=== PATIENT | female | born 1985 | race Caucasian/White ===

== ENCOUNTER → 2021-10-02 15:48 | Outpatient (BNVA) | payer SELFPAY | PROVIDERS: Family Provider Family Medicine; Visit Provider Nurse Practitioner Women's Health | DX: Z01.419 Encounter for gynecological examination (general) (routine) without abnormal findings (principal); N39.3 Stress incontinence (female) (male); N81.10 Cystocele, unspecified; N81.6 Rectocele; N90.89 Other specified noninflammatory disorders of vulva and perineum | CPT/HCPCS: 87624 ==

== ENCOUNTER → 2022-10-05 09:31 | Outpatient (BNVA) | payer SELFPAY | PROVIDERS: Family Provider Family Medicine; Visit Provider Nurse Practitioner Women's Health | DX: Z01.419 Encounter for gynecological examination (general) (routine) without abnormal findings (principal); Z86.32 Personal history of gestational diabetes | CPT/HCPCS: 87624 ==

== ENCOUNTER 2023-02-03 22:53 | Emergency (ER) | payer SELFPAY ==
[2023-02-03 22:58] VITALS: BP 137/87; PULSE 66; RESP 18; TEMP 37.2; O2SAT 100; BMI 30.2
--- NOTE | 2023-02-03 23:12 | XRR_ITS ---
PROCEDURE INFORMATION: Exam: XR Abdomen Exam date and time: 02/03/2023 11:58 PM Age: 37 years old Clinical indication: Abdominal pain; Flank; Right; Patient HX: C/O RT sided abd pain; Additional info: Right flank pain TECHNIQUE: Imaging protocol: Radiologic exam of the abdomen. Views: Frontal supine view of the abdomen. 1 View. COMPARISON: No relevant prior studies available. FINDINGS: Gastrointestinal tract: [id number] constipation without bowel dilation to indicate obstruction. Bones/joints: Unremarkable. XR/XR KUB [id number] IMPRESSION: 1. Negative for urinary calculi 2. [id number] constipation without bowel dilation to indicate obstruction.
--- NOTE | 2023-02-03 23:13 | W.ED.ABDPA2 ---
HPI - Abdominal Pain General: Chief Complaint: Abdominal Pain Stated Complaint: abd/back pain Time Seen by Provider: 02/03/23 23:07 Source: patient Mode of arrival: ambulatory Limitations: no limitations History of Present Illness: 37-year-old female states she started having right flank pain on Tuesday. She states she has a history of kidney stones states she is passed 2 small stones in the last 2 days but started having worsening pain today states the pain is sharp in nature rates today 8 out of 10 she had some nausea denies any fevers denies any dysuria. She states this feels the same as her previous kidney stones. Associated Symptoms: Reports nausea; Denies chills, diarrhea, dysuria, fever(s) and vomiting Review of Systems Const: Denies: fever(s) or chills ENMT: Denies: throat pain or dental pain Card: Denies: chest pain Resp: Denies: dyspnea GI: Reports: abdominal pain and nausea; Denies: vomiting or diarrhea : Reports: flank pain; Denies: dysuria Musc: Denies: neck pain or back pain Skin/Breast: Denies: rash Neuro: Denies: headache(s) PFSH ED PFSH: Medical History Anxiety has been treated by [facility] with buspar but not helpful. Has been off medication for since at least 2019. History of gestational diabetes No pertinent past medical history neghx:htn,thyroid,dvt/pe PCP: none Pelvic pain Was suspected to be endometriosis but has not been formally diagnosed. Surgical History No pertinent past surgical history Family History Denies family history of Colon cancer Ovarian cancer Diabetes CAD (coronary artery disease) Clotting disorder Chronic kidney disease (CKD) Breast cancer Family history of premature coronary artery disease Hypertension Uterine cancer Stroke Physical Exam Const: COMMON NORMALS: no acute distress, patient oriented x3 and healthy appearing HENMT: COMMON NORMALS: normocephalic and atraumatic HEAD & SCALP: normocephalic and atraumatic Neck/C-Spine: COMMON NORMALS: full ROM and supple Chest: COMMONS NORMALS: normal inspection of the chest Resp: COMMON NORMALS: normal respiratory effort, No retractions, No use of accessory muscles and clear to auscultation bilaterally AUSCULTATION: clear to auscultation bilaterally Cardio: COMMON NORMALS: regular rate, regular rhythm and No murmurs present (Cardio) RATE: regular rate RHYTHM: regular rhythm GI: COMMON NORMALS: Normal to inspection, nondistended, normoactive bowel sounds present, Soft to palpation, non-tender and no masses PALPATION: Yes Soft to palpation : COMMON NORMALS: Yes no CVA tenderness BLADDER/KIDNEY EXAM: Yes no CVA tenderness Back/Pelvis: COMMON NORMALS: no CVA tenderness Extremity: COMMON NORMALS: normal to inspection and full ROM Neuro: COMMON NORMALS: patient oriented x3, moves all extremities and no focal motor deficits Psych: COMMON NORMALS: mental status grossly normal, Normal thought process present and cooperative THOUGHT PROCESS: Normal thought process present Skin: COMMON NORMALS: no rashes or lesions noted and no wounds GENERAL SKIN EXAM: no rashes or lesions noted Course Vital Signs: Vital signs: Vital Signs Temperature 98.9 F 02/03/23 22:58 Pulse Rate 80 02/04/23 01:23 Respiratory Rate 16 02/04/23 01:23 Blood Pressure 131/93 02/04/23 01:23 Pulse Oximetry 99 02/04/23 01:23 MDM - Abdominal Pain Medical Decision Making Patient presents with abdominal pain she does have hematuria could be a stone her pain is much improved here she states her pain currently is only 1 out of 10 she is also constipated on the x-ray her blood work here is normal on reevaluation I did offer her CT scan but she states she feels improved she would like to try pain meds at home along with a laxative she is no signs of UTI. I did inform her if her pain worsens she is to return as she would probably need a CT at that time to rule out appendicitis on discharge she has no right lower quadrant or right quadrant tenderness. She understands agrees to plan Lab Data 02/03/23 23:15 02/03/23 23:15 Labs/Radiology: Radiology Impressions KUB X-Ray 02/03/23 23:12 IMPRESSION: 1. Negative for urinary calculi 2. [id number]-hu-pclstotf constipation without bowel dilation to indicate obstruction. Laboratory Results WBC 12.5 10^3/uL (4.0-10.0) H 08/10/23 23:15 RBC 4.33 10^6/uL (4.1-5.3) 02/03/23 23:15 Hgb 13.4 g/dL (11.5-15.3) 02/03/23 23:15 Hct 37.6 % (37.0-47.0) 02/03/23 23:15 MCV 86.8 fl (81-99) 02/03/23 23:15 MCH 30.9 pg (28.0-34.0) 02/03/23 23:15 MCHC 35.6 g/dL (30.0-36.0) 02/03/23 23:15 RDW 11.7 % (12.1-15.1) L 02/03/23 23:15 Plt Count 247 10^3/cmm (130-400) 02/03/23 23:15 MPV 11.0 fL (7.4-10.4) H 02/03/23 23:15 Neut % (Auto) 81.0 % 02/03/23 23:15 Lymph % (Auto) 9.8 % 02/03/23 23:15 [place] % (Auto) 7.4 % 02/03/23 23:15 Eos % (Auto) 1.0 % 02/03/23 23:15 Baso % (Auto) 0.3 % 02/03/23 23:15 Neut # (Auto) 10.14 10^3/uL (1.8-7.7) H 02/03/23 23:15 Lymph # (Auto) 1.2 10^3/uL (0.8-4.8) 02/03/23 23:15 [place] # (Auto) 0.9 10^3/uL (0.2-0.9) 02/03/23 23:15 Eos # (Auto) 0.1 10^3/uL (0.0-0.8) 02/03/23 23:15 Baso # (Auto) 0.0 10^3/uL (0.0-0.1) 02/03/23 23:15 Nucleated RBC % (auto) 0 % 02/03/23 23:15 Nucleated RBCs # 0.0 /100WBC 02/03/23 23:15 Sodium 139 mmol/L (136-145) 02/03/23 23:15 Potassium 4.2 mmol/L (3.5-5.1) 02/03/23 23:15 Chloride 101 mmol/L (98-107) 02/03/23 23:15 Carbon Dioxide 25 mmol/L (22-29) 02/03/23 23:15 Anion Gap 17.2 (5-19) 02/03/23 23:15 BUN 12 mg/dL (6-20) 02/03/23 23:15 Creatinine 1.4 mg/dL (0.5-0.9) H 02/03/23 23:15 GFR Calculation 42.1 mL/min (90-130) L 02/03/23 23:15 Glucose 123 mg/dL (65-115) H 02/03/23 23:15 Calculated Osmolality 289 mOsm/kg (285-295) 02/03/23 23:15 Calcium 9.2 mg/dL (8.5-10.5) 02/03/23 23:15 Total Bilirubin 0.6 mg/dL (0.15-1.2) 02/03/23 23:15 AST 15 U/L (0-32) 02/03/23 23:15 ALT 10 U/L (0-33) 02/03/23 23:15 Alkaline Phosphatase 74 U/L (35-105) 02/03/23 23:15 Total Protein 7.3 g/dL (6.6-8.7) 02/03/23 23:15 Albumin 4.7 g/dL (3.5-5.2) 02/03/23 23:15 Globulin 2.6 g/dL (1.3-4.6) 02/03/23 23:15 Lipase 23 U/L (13-60) 02/03/23 23:15 HCG, Qual Negative (Negative) 02/03/23 23:15 Urine Color Yellow (Yellow) 02/03/23 23:57 Urine Appearance Hazy (CLEAR) A 02/03/23 23:57 Urine pH 5 (5-7) 02/03/23 23:57 Ur Specific [place] 1.025 (1.005-1.030) 02/03/23 23:57 Urine Protein 1+ (Negative) H 02/03/23 23:57 Urine Glucose (UA) Norm (Normal) 02/03/23 23:57 Urine Ketones 3+ (Negative) H 02/03/23 23:57 Urine Blood 3+ (Negative) H 02/03/23 23:57 Urine Nitrate Negative (Negative) 02/03/23 23:57 Urine Bilirubin 1+ (Negative) H 02/03/23 23:57 Urine Urobilinogen 1 mg/dL (Negative) H 02/03/23 23:57 Ur Leukocyte Esterase Trace (Negative) H 02/03/23 23:57 Urine RBC 15-25 /hpf (0-2) H 02/03/23 23:57 Urine WBC 25-40 /hpf (0-5) H 02/03/23 23:57 Ur Squamous Epith Cells 0-4 /hpf (0-5) H 02/03/23 23:57 Amorphous Sediment Not Reportable 02/03/23 23:57 Urine Bacteria Trace /hpf (NONE) 02/03/23 23:57 Discharge Plan Discharge Patient Disposition: Home Clinical Impression: Abdominal pain, Constipation, Flank pain Condition: Stable Prescriptions: New hydrocodone-acetaminophen 5-325 mg tablet 1 tab PO Q6H PRN (Reason: pain) Qty: 14 0RF ondansetron 4 mg tablet,disintegrating 4 mg PO Q6H PRN (Reason: nausea and vomiting) Qty: 14 0RF Miralax 17 gram powder in packet 17 g PO BID Qty: 14 0RF No Action norethindrone (contraceptive) 0.35 mg tablet See Rx Instructions .ROUTE .COMPLEX Qty: 84 3RF Dose Instruction: TAKE 1 TABLET BY MOUTH EVERY DAY Rx Instructions: TAKE 1 TABLET BY MOUTH EVERY DAY Discharge Orders: Discharge ED (Routine); Ordered 02/04/23 Ordered By: Nany Mccoy Discharge Diet: Advance as tolerated Discharge Activity: Resume usual activity Patient Instructions: Constipation (ED), Abdominal Pain (ED), Opioid Safety Coding Level of Care Code ED Vocational Placement Specialist for Ros Anderson
[2023-02-03 23:19] VITALS: RESP 16; O2SAT 100
[2023-02-03] MEDS: HYDROmorphone 1 mg/mL INJ 1 mL IVP (23:19)
[2023-02-03] MEDS: ondansetron 2 mg/ML SDV 2 mL 4 MG IVP (23:19)
[2023-02-03 23:21] VITALS: BP 146/89; PULSE 73; RESP 18; O2SAT 100
[2023-02-03 23:26] LABS: Basophils % 0.3 %; Eosinophils # 0.1 10^3/uL (0.0-0.8); Hematocrit 37.6 % (37.0-47.0); Hemoglobin 13.4 g/dL (11.5-15.3); Lymphocytes # 1.2 10^3/uL (0.8-4.8); Lymphocytes % 9.8 %; Mean Corpuscular HGB Conc 35.6 g/dL (30.0-36.0); Mean Corpuscular Hemoglobin 30.9 pg (28.0-34.0); Mean Corpuscular Volume 86.8 fl (81-99); Monocytes # 0.9 10^3/uL (0.2-0.9); Monocytes % 7.4 %; Neutrophils # 10.14 10^3/uL (1.8-7.7); Nucleated Red Blood Cells % 0 %; Platelet Count 247 10^3/cmm (130-400); Red Blood Count 4.33 10^6/uL (4.1-5.3); Red Cell Distribution Width 11.7 % (12.1-15.1); White Blood Count 12.5 10^3/uL (4.0-10.0)
[2023-02-03 23:43] LABS: HCG, Serum Qual Negative (Negative)
[2023-02-03 23:47] LABS: Alanine Aminotransferase 10 U/L (0-33); Albumin Level 4.7 g/dL (3.5-5.2); Alkaline Phosphatase 74 U/L (35-105); Anion Gap 17.2 (5-19); Aspartate Amino Transferase 15 U/L (0-32); Blood Urea Nitrogen 12 mg/dL (6-20); Calcium 9.2 mg/dL (8.5-10.5); Carbon Dioxide 25 mmol/L (22-29); Chloride 101 mmol/L (98-107); Globulin 2.6 g/dL (1.3-4.6); Glomerular Filtration Rate 42.1 mL/min (90-130); Glucose 123 mg/dL (65-115); Lipase 23 U/L (13-60); Osmolality Calculated 289 mOsm/kg (285-295); Potassium 4.2 mmol/L (3.5-5.1); Sodium 139 mmol/L (136-145); Total Bilirubin 0.6 mg/dL (0.15-1.2); Total Protein 7.3 g/dL (6.6-8.7)
[2023-02-04 00:08] LABS: Add Urine Microscopic? YES; Bilirubin Urine 1+ (Negative); Blood Urine 3+ (Negative); Glucose Urine UA Norm (Normal); Ketones Urine 3+ (Negative); Leukocyte Esterase Urine Trace (Negative); Nitrate Urine Negative (Negative); Protein Urine 1+ (Negative); Specific Gravity, Urine 1.025 (1.005-1.030); Urine Appearance Hazy (CLEAR); Urine Color Yellow (Yellow); Urobilinogen Urine 1 mg/dL (Negative); pH Urine 5 (5-7)
[2023-02-04 00:11] LABS: Bacteria Urine TRACE /hpf; RBC Urine 15-25 /hpf (0-2); Squamous Epithelial Cell Urine 0-4 /hpf (0-5); WBC Urine 25-40 /hpf (0-5)
[2023-02-04 00:12] LABS: Add Urine Culture? Yes
[2023-02-04] MEDS: sodium chloride 0.9% 1,000 ML 999 ML IV (00:46)
[2023-02-04] MEDS: lactulose oral liq 20 gm/30 mL UDC 30 GM PO (00:49)
[2023-02-04 01:01] VITALS: RESP 16; O2SAT 97
[2023-02-04] MEDS: HYDROmorphone 1 mg/mL INJ 1 mL IVP (01:01)
[2023-02-04 01:23] VITALS: BP 131/93; PULSE 80; RESP 16; O2SAT 99
== END 2023-02-04 01:24 | disposition home or self-care (01) ==
PROVIDERS: Emergency Provider Emergency Medicine
DX: R10.9 Unspecified abdominal pain (principal); K59.00 Constipation, unspecified
CPT/HCPCS: 74018; 80053; 81001; 81003; 83690; 84703; 85025; 87086; 96374; 96375; 96376; 99285; J1170; J2405; J7030

== ENCOUNTER → 2025-03-21 12:14 | Outpatient (BNVA) | payer BC, MEDICAID, SELFPAY | PROVIDERS: Visit Provider Nurse Practitioner Women's Health | DX: Z01.419 Encounter for gynecological examination (general) (routine) without abnormal findings (principal); N91.2 Amenorrhea, unspecified | CPT/HCPCS: 80053; 81025; 82306; 83036; 84443; 85025 ==

== ENCOUNTER 2025-03-27 07:56 | Outpatient (CLI) | payer BC, MEDICAID, SELFPAY ==
--- NOTE | 2025-03-27 08:20 | MM_ITS ---
WS: [id number] BILATERAL SCREENING DIGITAL TOMOSYNTHESIS MAMMOGRAM WITH CAD HISTORY: Z12.39 - Encounter for other screening for malignant neop... COMPARISON: None available. Bilateral CC and MLO views with tomosynthesis and synthetic mammography submitted. Computer aided detection analyzed. Breast composition: There are scattered areas of fibroglandular density. No suspicious masses, microcalcifications or architectural distortion. MM/MM scr BI tomosynthesis [id number] IMPRESSION: BI-RADS: 1 - Negative. FOLLOW UP: 1 Year Follow-up
== END 2025-03-27 07:57 | disposition home or self-care (01) ==
LOC: RAD 07:57
PROVIDERS: Visit Provider Nurse Practitioner Women's Health
DX: Z12.31 Encounter for screening mammogram for malignant neoplasm of breast (principal); R92.323 Mammographic fibroglandular density, bilateral breasts
CPT/HCPCS: 77063; 77067